=== PATIENT | female | born 1995 | race Caucasian/White ===

== ENCOUNTER 2017-02-24 06:47 | Inpatient (IN) | payer MEDICAID, SELFPAY | END 2017-02-26 10:35 | disposition home or self-care (01) | DRG 775 | PROVIDERS: Admitting Provider Obstetrics & Gynecology; Referring Provider Obstetrics & Gynecology; Visit Provider Obstetrics & Gynecology | DX: Z3A.39 39 weeks gestation of pregnancy; Z37.0 Single live birth; O80 Encounter for full-term uncomplicated delivery | CPT/HCPCS: 59409; 36415; 59025; 81001; 82800; 85014; 85018; 85025; 86592; 86762; 86850; 86900; 86901; 87086; 87340; J0290 ==

== ENCOUNTER → 2017-10-19 12:33 | Outpatient (CLI) | payer MEDICAID, SELFPAY ==
--- NOTE | 2017-10-19 | CA_ITS ---
PROCEDURE: 2-D M-mode and color Doppler study INDICATIONS FOR THE TEST: Chest pain COPD Heart Murmur+ Tobacco Smoking Palpitations+ Fatigue Syncope Edema Hypertension Diabetes Mellitus Rheumatic Fever SOB [place] Obesity Hyperlipidemia Family History HD Additional History right sided cp PATIENT INFORMATION HEIGHT: 65 WEIGHT: 150 GENDER: Female B/P: 115/58 2-D/M-MODE INTERPRETATION: 2-D MEASUREMENTS OBSERVED VALUES IN CMS Right Ventricular Dimension (RVDd) 1.7 Interventricular Septum (Thickness)(IVsd) 0.6 Left Ventricular Internal Dimensions(LVIDd) 4.6 Left Ventricular Posterior Wall (Thickness)(LVPWd) 0.6 Aortic Root 2.4 Aortic Cusp Separation 1.6 Left Atrial Dimensions (LAD) 3.1 2D 1. Left atrium is normal size, left ventricle is normal size, there is no concentric left ventricular hypertrophy, visually estimated ejection fraction 55% with no obvious regional wall motion abnormality. 2. The right atrium and right ventricle are normal size and contractility. 3. The aortic, mitral and tricuspid valvular grossly normal. 4. The pulmonic valve is poorly visualized. 5. No significant pericardial effusion noted. DOPPLER INTERROGATION: Doppler interrogation of the aortic, mitral and tricuspid valvular presence of mild mitral and tricuspid regurgitation, tricuspid and jet velocity is insufficient for calculation of the right ventricular systolic pressure, diastolic parameters are within normal range. CONCLUSION: 1. Normal left ventricular size, preserved left ventricular systolic function, visually estimated ejection fraction 55% with no obvious regional wall motion abnormality. Diastolic parameters are within normal range. 2. Mild mitral and tricuspid regurgitation 3. No significant pericardial effusion noted.
== END ==
PROVIDERS: Family Provider Pediatrics; PCP Internal Medicine Adolescent Medicine; Visit Provider Nurse Practitioner Family
DX: R01.1 Cardiac murmur, unspecified (principal)
CPT/HCPCS: 93306

== ENCOUNTER 2018-01-09 14:00 | Outpatient (RCR) | payer MEDICAID, SELFPAY | END 2018-01-19 10:28 | disposition home or self-care (01) | LOC: PT 14:00 | PROVIDERS: Family Provider Pediatrics; PCP Internal Medicine Adolescent Medicine; Visit Provider Nurse Practitioner Family | DX: R07.1 Chest pain on breathing (principal); M54.6 Pain in thoracic spine; G89.29 Other chronic pain | CPT/HCPCS: 97014; 97110; 97140; 97163; G0283 ==

== ENCOUNTER 2025-02-13 08:00 | Outpatient (RCR) | payer OTHER, MEDICAID, SELFPAY | END 2025-02-13 23:59 | disposition home or self-care (01) | LOC: PT.CARL 08:00 | PROVIDERS: PCP Nurse Practitioner; Visit Provider Physician Assistant | DX: M54.50 Low back pain, unspecified (principal); M54.6 Pain in thoracic spine | CPT/HCPCS: 97032; 97110; 97162 ==

== ENCOUNTER 2025-03-07 08:00 | Outpatient (RCR) | payer OTHER, MEDICAID, SELFPAY | END 2025-03-07 23:59 | disposition home or self-care (01) | LOC: PT.CARL 08:00 | PROVIDERS: PCP Nurse Practitioner; Visit Provider Physician Assistant | DX: M54.2 Cervicalgia (principal); M54.6 Pain in thoracic spine; M54.50 Low back pain, unspecified | CPT/HCPCS: 97032; 97110; 97530 ==